=== PATIENT | female | born 1985 | race Caucasian/White ===

== ENCOUNTER 2017-02-27 17:10 | Emergency (ER) | payer OTHER ==
[~2017-02-27] VITALS: Ht 167.6 cm; Wt 101.8 kg
[~2017-02-27 17:10] MED LIST: ACYCLOVIR400 MG PO; ADVIL,NUPRIN,M200 MG PO; BACTRIM,SEPT1 TABLET PO; CIPRO500 MG PO; DOXYCYCLINE HY100 M3 PO; DOXYCYCLINE HY100 MG PO; FLAGYL500 MG PO; FLEXERIL10 MG PO; FLEXERIL5 MG PO; FUROSEMIDE40 MG PO; HYCODAN SYRUP480 ML PO; IBUPROFEN600 MG PO; LIDODERM 5% P1 PATCH TD; LISINOPRIL2.5 MG PO; LORTAB 5-325 M1 EACH PO; MACROBID100 MG PO; MECLIZINE HCL25 MG PO; MELOXICAM7.5 MG PO; METOPROLOL SUCC25 MG PO; MIRALAX255 GM PO; MOBIC7.5 MG PO; MOTRIN IB200 MG PO; MOTRIN600 MG PO; MOTRIN800 MG PO; NAPROXEN SODIU550 MG PO; NICODERM CQ1 EAC2 TD; NICOTINE PATCH1 EAC2 TD; NO MEDS; NORCO 5/3251 TABLET PO; NORCO 7.5/321 TABLET PO; PREDNISONE20 MG PO; PROVENTIL17 G1 IH; THERAFLU COLD-1 EAC1 PO; TYLENOL WITH C1 EACH PO; ULTRAM50 MG PO; VALIUM5 MG PO; XANAX0.5 MG PO; ZANTAC; ZANTAC150 MG PO; ZITHROMAX Z-PA250 MG PO
[2017-02-27 18:09] LABS: ADD MIUA? YES; BILIRUBIN NEGATIVE; BLOOD SMALL; COLOR YELLOW ((YELLOW)); GLUCOSE (STRIP) NEGATIVE; KETONES NEGATIVE; LEUKOCYTES SMALL; NITRITE NEGATIVE; PROTEIN (STRIP) 30; UROBILINOGEN 0.2 MG/DL (0.2-1.0)
[2017-02-27 18:12] LABS: MCH 28.5 PG (29.0-34.0); MCHC 33.3 G/DL (30.0-36.0); MCV 85.5 FL (83-99); MEAN PLAT.VOLUME 10.6 uM^3 (9.5-12.4); PLATELET COUNT 240 K/uL (156-360); RBC DIS.WIDTH-CV 12.6 % (11.8-14.6); RBC DIS.WIDTH-SD 39.3 % (39-53); RED BLOOD COUNT 4.91 M/uL (3.80-5.20); WHITE BLOOD COUNT 7.8 K/uL (4.1-10.2)
[2017-02-27 18:24] LABS: CHLORIDE 108 mEq/L (99-109); POTASSIUM 3.5 mEq/L (3.7-5.4); SODIUM 139 mEq/L (136-147)
[2017-02-27 18:26] LABS: GLUCOSE 87 mg/dL (70-99)
[2017-02-27 18:27] LABS: ANION GAP 10 MEQ/L (2-14)
[2017-02-27 18:28] LABS: TOTAL BILIRUBIN 0.6 mg/dL (0.0-1.0)
[2017-02-27 18:31] LABS: UREA NITROGEN (BUN) 11 mg/dL (9-23)
[2017-02-27 18:33] LABS: EOSINOPHIL (%) 3.2 % (0-5); EOSINOPHIL COUNT 0.3 K/uL (0-0.3); IMMATURE GRANULOCYTE (%) 0.3 % (0.0-0.7); INSTRUMENT ABS NEUTROPHIL CT 4.5 K/uL; LIPASE 17 U/L (1.0-51.0); LYMPHOCYTE COUNT 2.4 K/uL (1.0-2.8); MONOCYTE (%) 6.7 % (3-12); MONOCYTE COUNT 0.5 K/uL (0-0.8); NEUTROPHIL (%) 58.3 % (45-76); NEUTROPHIL COUNT 4.5 K/uL (1.8-6.4)
[2017-02-27 18:41] LABS: QUANTITATIVE HCG < 4.0 MIU/ML
[2017-02-27 18:47] LABS: ALKALINE PHOSPHATASE 76 IU/L (3-129); GFR ESTIMATE (CALCULATED) > 59 mL/min/
[2017-02-27 18:51] LABS: BACTERIA RARE /HPF; EPITHELIAL CELLS 1+ /HPF; MUCUS 1+ /LPF; UCUL ADDED? NO
[2017-02-27] MEDS ORDERED: ZOFRAN ODT4 MG PO (22:10)
[2017-02-27] MEDS ORDERED: MOTRIN800 MG PO (22:10)
[2017-02-27 23:30] VITALS: BP 130/74
== END 2017-02-27 23:33 | disposition home or self-care (01) ==
LOC: EME 17:10
DX: R10.11 Right upper quadrant pain (principal); R11.2 Nausea with vomiting, unspecified; I25.2 Old myocardial infarction; K44.9 Diaphragmatic hernia without obstruction or gangrene; K21.9 Gastro-esophageal reflux disease without esophagitis; I10 Essential (primary) hypertension; F32.9 Major depressive disorder, single episode, unspecified; F41.9 Anxiety disorder, unspecified; Z88.0 Allergy status to penicillin; F17.200 Nicotine dependence, unspecified, uncomplicated; R31.9 Hematuria, unspecified; Z85.028 Personal history of other malignant neoplasm of stomach
CPT/HCPCS: 74176; 76705; 80053; 81003; 83690; 84702; 85025; 85027; 99281; 99285; J1885; J3010

== ENCOUNTER 2017-05-07 03:50 | Emergency (ER) | payer OTHER ==
[~2017-05-07] VITALS: Ht 167.6 cm; Wt 103.9 kg
[~2017-05-07 03:50] MED LIST changes: +ZOFRAN ODT4 MG PO
[2017-05-07 04:11] LABS: HEMATOCRIT 41.9 % (36.0-46.0); MCH 28.7 PG (29.0-34.0); MCHC 32.7 G/DL (30.0-36.0); MCV 87.8 FL (83-99); MEAN PLAT.VOLUME 9.7 uM^3 (9.5-12.4); PLATELET COUNT 273 K/uL (156-360); RBC DIS.WIDTH-CV 12.8 % (11.8-14.6); RBC DIS.WIDTH-SD 41.2 % (39-53); RED BLOOD COUNT 4.77 M/uL (3.80-5.20); WHITE BLOOD COUNT 7.3 K/uL (4.1-10.2)
[2017-05-07 04:23] LABS: CHLORIDE 104 mEq/L (99-109); POTASSIUM 3.7 mEq/L (3.7-5.4); SODIUM 140 mEq/L (136-147)
[2017-05-07 04:24] LABS: GLUCOSE 78 mg/dL (70-99)
[2017-05-07 04:26] LABS: ANION GAP 10 MEQ/L (2-14)
[2017-05-07 04:28] LABS: GFR ESTIMATE (CALCULATED) > 59 mL/min/
[2017-05-07 04:29] LABS: UREA NITROGEN (BUN) 11 mg/dL (9-23)
[2017-05-07 04:33] LABS: TROP-I INTERPRETATION NEGATIVE; TROPONIN-I < 0.01 ng/mL (0.0-0.30)
[2017-05-07 05:51] VITALS: BP 114/65
== END 2017-05-07 05:53 | disposition left against medical advice (07) ==
LOC: EME 03:50
DX: R07.9 Chest pain, unspecified (principal); I25.2 Old myocardial infarction; I10 Essential (primary) hypertension; K21.9 Gastro-esophageal reflux disease without esophagitis; J45.909 Unspecified asthma, uncomplicated; F17.200 Nicotine dependence, unspecified, uncomplicated; Z85.028 Personal history of other malignant neoplasm of stomach; Z87.442 Personal history of urinary calculi
CPT/HCPCS: 71020; 80048; 84484; 85027; 93005; 99281; 99284